=== PATIENT | female | born 2005 | race Caucasian/White ===

== ENCOUNTER 2024-12-21 15:59 | Emergency (ER) | payer OTHER ==
[2024-12-21 16:08] VITALS: RESP 18; BMI 18.1
[2024-12-21] MEDS ORDERED: hydrOXYzine PAMOATE 25 MG CAPSULE (FP) PO ONE (18:07)
[2024-12-21] MEDS: SODIUM CHLORIDE 1,000 ML IV STA (18:19)
[2024-12-21 18:38] LABS: ABSOLUTE IMMATURE GRANULOCYTES 0.05 x10^3/uL (0.0-0.031); BASOPHILS # 0.02 x10^3/uL (0.01-0.08); EOSINOPHIL % 0.1 % (0.7-5.8); EOSINOPHILS # 0.01 x10^3/uL (0.04-0.36); MCHC 30.9 g/dl (32.2-35.5); MEAN CELL VOLUME 80.7 fl (79.4-94.8); MEAN PLT VOLUME 9.4 fl (9.4-12.3); MONOCYTE # 0.26 x10^3/uL (0.24-0.86); MONOCYTE % 3.4 % (4.7-12.5); RDW 16.3 % (12.0-16.2)
[2024-12-21 18:58] LABS: CO2 22.0 mmol/L (21-32); GLUCOSE,RANDOM 109.0 mg/dL (74-106)
[2024-12-21 19:01] LABS: CREATININE 0.8 mg/dL (0.55-1.3); SGOT/AST 18.0 U/L (15-37); SGPT/ALT 18.0 U/L (13-61); TOT PROT 7.3 g/dl (6.4-8.2)
[2024-12-21 19:04] LABS: ALK PHOS 56.0 U/L (45-117)
[2024-12-21 19:51] LABS: EPI CELLS 15 /uL (0-25.1); HCG,QUALITATIVE URINE Negative; HYALINE CASTS 0 /uL (0-3.1); URINE APPEARANCE CLEAR; URINE BACTERIA 546 /uL (0-1359); URINE BILIRUBIN NEGATIVE (NEGATIVE); URINE COLOR YELLOW; URINE GLUCOSE (UA) NEGATIVE (NEGATIVE); URINE KETONE 2+ (NEGATIVE); URINE LEUK ESTERASE TRACE (NEGATIVE); URINE NITRITE NEGATIVE (NEGATIVE); URINE PROTEIN TRACE (NEGATIVE); URINE RBC 15 /uL (0-23.9); URINE UROBILINOGEN 1.0 mg/dL (0.2-1.0); URINE WBC 21 /uL (0-25.8)
[2024-12-21] MEDS ORDERED: METOCLOPRAMIDE HCL INJECTION 10 MG/2 ML VIAL ONE (20:09)
[2024-12-21] MEDS: METOCLOPRAMIDE HCL INJECTION 10 MG/2 ML VIAL IVPUSH ONE (20:15)
[2024-12-21] MEDS ORDERED: ONDANSETRON *ODT* 4 MG TABLET ONE (21:32)
[2024-12-21] MEDS: ONDANSETRON *ODT* 4 MG TABLET SL ONE (21:34)
[2024-12-21] MEDS: CEPHALEXIN MONOHYDRATE 500 MG CAPSULE (UD) PO ONE (21:34)
[2024-12-21 21:35] VITALS: BP 100/73; PULSE 82; TEMP 98.4
[2024-12-22 00:36] LABS: HCV DIAGNOSTIC IN-HOUSE W/RFLX NON-REACTIVE (NONREACTIVE)
[2024-12-22 00:40] LABS: HIV INTERPRETATION NEGATIVE (NEGATIVE)
== END 2024-12-21 21:35 | disposition home or self-care (01) ==
LOC: JER 15:59
PROC: 3E033GC Introduction of Other Therapeutic Substance into Peripheral Vein, Percutaneous Approach (ICD-10-PCS; principal; 2024-12-21)
PROC: 3E0337Z Introduction of Electrolytic and Water Balance Substance into Peripheral Vein, Percutaneous Approach (ICD-10-PCS; 2024-12-21)
DX: N39.0 Urinary tract infection, site not specified (principal); R20.2 Paresthesia of skin; R10.13 Epigastric pain; R11.2 Nausea with vomiting, unspecified; R25.1 Tremor, unspecified; R19.7 Diarrhea, unspecified; R06.02 Shortness of breath; R20.0 Anesthesia of skin
CPT/HCPCS: 36415; 80053; 81003; 83690; 84443; 84484; 84703; 85025; 86803; 86850; 86900; 86901; 87086; 87389; 93005; 93010; 96361; 96374; 99284-25; Q0162